=== PATIENT | female | born 1955 | race African-American/Black ===

== ENCOUNTER 2023-06-01 09:12 | Emergency (ER) | payer OTHER ==
[~2023-06-01] VITALS: Ht 172.7 cm; Wt 97.0 kg
[2023-06-01 09:20] VITALS: O2SAT 98
[2023-06-01] MEDS ORDERED: ACET-2708 MT (11:15)
[2023-06-01] MEDS ORDERED: DOXY100C5 MT (11:15)
[2023-06-01 11:44] VITALS: BP 144/84; PULSE 74; RESP 20; TEMP 98.7
== END 2023-06-01 11:47 | disposition home or self-care (01) ==
LOC: ER 09:12
DX: L02.01 Cutaneous abscess of face (principal); I10 Essential (primary) hypertension; E78.00 Pure hypercholesterolemia, unspecified; E11.9 Type 2 diabetes mellitus without complications
CPT/HCPCS: 99283